=== PATIENT | female | born 1980 | race Caucasian/White ===

== ENCOUNTER 2018-09-15 01:27 | Emergency (ER) | payer BC, OTHER ==
--- NOTE | 2018-09-15 01:43 | ER Document Report ---
ED General - General Chief Complaint: Shortness Of Breath Stated Complaint: TROUBLE BREATHING Time Seen by Provider: 09/15/18 01:43 Notes: Patient is a 38-year-old female that presents to the emergency department for chief complaint of shortness of breath. Patient states she is been having cold symptoms and cough since August 25, she is also been complaining of some eye swelling over the period of time. She states that the change denies she became significantly more short of breath, and had pain along the right side, worse with deep breathing. She states she feels tightness in her chest as well. She denies history of asthma or COPD. She is a non-smoker. She currently rates her pain as a 4 out of 10 describes as an aching sensation on the right side. She also has pain underneath the right eyelid, and she is noticed some swelling or 2, denies any eye redness, or discharge. She denies any current headaches, lightheadedness, dizziness. Denies any current nausea, vomiting or abdominal pain. She also denies having any leg swelling, redness or pain. She does report taking 2 puffs of albuterol inhaler prior to ED arrival. Past Medical History: Hypothyroidism Past Surgical History: Thyroidectomy Social History: Denies tobacco, alcohol or drug use. Family History: Reviewed and noncontributory for presenting illness Allergies: Reviewed, see documented allergy list. REVIEW OF SYSTEMS: Other than noted above, the 12 point review of systems was reviewed with the patient and were negative, all pertinent findings are included in the HPI. PHYSICAL EXAMINATION: Vital signs reviewed, nursing noted reviewed. GENERAL: Patient appears rather anxious, but nontoxic appearing HEAD: Atraumatic, normocephalic. EYES: Eyes appear normal, extraocular movements intact, sclera anicteric. There is mild right conjunctival injection, compared to the left. PERRLA, there is very mild right periorbital edema mainly limited to the lower eyelid. ENT: nares patent, oropharynx clear without exudates. Moist mucous membranes. NECK: Normal range of motion, supple without lymphadenopathy LUNGS: Tachypneic, lung sounds clear at this time. Equal bilaterally. HEART: Heart rate tachycardic, regular rhythm. ABDOMEN: Soft, nontender, normoactive bowel sounds. No rebound, guarding, or rigidity. No masses appreciated. EXTREMITIES: Nontender, good range of motion, no pitting or edema. NEUROLOGICAL: No focal neurological deficits. Moves all extremities spontaneously Motor and sensory grossly intact on exam. PSYCH: Anxious appearing, but answering questions appropriately. SKIN: Warm, Dry, normal turgor, no rashes or lesions noted on exposed skin TRAVEL OUTSIDE OF THE [place] IN LAST 30 DAYS: No - Related Data Allergies/Adverse Reactions: No Known Allergies Allergy (Verified 09/15/18 02:08) Past Medical History - Social History Smoking Status: Never Smoker Family History: Reviewed & Not Pertinent Physical Exam - Vital signs Vitals: Temp Pulse Resp BP Pulse Ox 98.1 F 100 30 H 126/100 H 100 09/15/18 01:31 09/15/18 01:31 09/15/18 01:31 09/15/18 01:09/15/18 01:31 Course - Re-evaluation Re-evalutation: Patient seen and examined vital signs reviewed. Laboratory data and imaging were ordered as appropriate for the patient's presenting symptoms and complaint, with consideration of any critical or life threatening conditions that may be associated with their obtained history and exam as noted above. Patient was treated with DuoNeb breathing treatment Results were reviewed when available and demonstrated essentially unremarkable blood work with the exception of a mildly elevated d-dimer, which was ordered because the patient's on oral contraceptive pills, and was tachycardic, and was having some chest discomfort unilaterally on the right, the d-dimer was slightly elevated, and therefore CT angiogram of the chest was ordered, this was negative for any acute pulmonary pathology, specifically negative for pulmonary embolism. The patient was re-evaluated and was improved, I discussed with the patient all results, including her thyroid function being normal, and that this is likely related to her URI symptoms, and possibly some mild bronchospasm, that responded to albuterol she gave herself at home, will discharge her with an albuterol inhaler, will also treated for mild conjunctivitis of her right eye, with Cipro drops, given first drop in the ED, dispense the dropper, and will treat for 5 days, advised follow-up with her primary care. Evaluation was most consistent with URI, conjunctivitis Results were discussed with the patient at this point, after careful co nsideration I feel that that patient can be discharged from the emergency department, the patient was educated treatments and reasons to return to the emergency department based on their presumed diagnosis as noted above, they were advised to followup with a primary care physician in 2-3 days. Patient was agreeable to plan of care. *Note is created using voice recognition software and may contain spelling, syntax or grammatical errors. Laboratory 09/15/18 09/15/18 09/15/18 01:40 01:40 01:40 WBC 8.7 RBC 4.49 Hgb 14.0 Hct 40.5 MCV 90 MCH 31.1 MCHC 34.5 RDW 13.1 Plt Count 415 Seg Neutrophils % 50.9 Lymphocytes % 36.3 Monocytes % 6.8 Eosinophils % 4.8 Basophils % 1.2 Absolute Neutrophils 4.4 Absolute Lymphocytes 3.2 Absolute Monocytes 0.6 Absolute Eosinophils 0.4 Absolute Basophils 0.1 PT INR D-Dimer 0.58 H VBG pH VBG pCO2 VBG HCO3 VBG Base Excess Sodium 145.8 H Potassium 4.5 Chloride 110 H Carbon Dioxide 25 Anion Gap 11 BUN 18 Creatinine 0.97 Est GFR ( Amer) > 60 Est GFR (Non-Af Amer) > 60 Glucose 105 POC Glucose Lactic Acid Calcium 9.4 Total Bilirubin 0.2 Direct Bilirubin 0.1 Neonat Total Bilirubin Not Reportable Neonat Direct Bilirubin Not Reportable Neonat Indirect Bili Not Reportable AST 28 ALT 28 Alkaline Phosphatase 109 Troponin I Total Protein 7.3 Albumin 4.7 TSH Free T4 Serum HCG, Qual Urine Color Urine Appearance Urine pH Ur Specific Bennett Urine Protein Urine Glucose (UA) Urine Ketones Urine Blood Urine Nitrite Urine Bilirubin Urine Urobilinogen Ur Leukocyte Esterase Urine WBC (Auto) Urine RBC (Auto) Urine Bacteria (Auto) Squamous Epi Cells Auto Urine Mucus (Auto) Urine Ascorbic Acid 09/15/18 09/15/18 09/15/18 01:40 01:40 01:40 WBC RBC Hgb Hct MCV MCH MCHC RDW Plt Count Seg Neutrophils % Lymphocytes % Monocytes % Eosinophils % Basophils % Absolute Neutrophils Absolute Lymphocytes Absolute Monocytes Absolute Eosinophils Absolute Basophils PT INR D-Dimer VBG pH VBG pCO2 VBG HCO3 VBG Base Excess Sodium Potassium Chloride Carbon Dioxide Anion Gap BUN Creatinine Est GFR ( Amer) Est GFR (Non-Af Amer) Glucose POC Glucose Lactic Acid Calcium Total Bilirubin Direct Bilirubin Neonat Total Bilirubin Neonat Direct Bilirubin Neonat Indirect Bili AST ALT Alkaline Phosphatase Troponin I < 0.012 Total Protein Albumin TSH 2.50 Free T4 1.44 Serum HCG, Qual NEGATIVE Urine Color Urine Appearance Urine pH Ur Specific Bennett Urine Protein Urine Glucose (UA) Urine Ketones Urine Blood Urine Nitrite Urine Bilirubin Urine Urobilinogen Ur Leukocyte Esterase Urine WBC (Auto) Urine RBC (Auto) Urine Bacteria (Auto) Squamous Epi Cells Auto Urine Mucus (Auto) Urine Ascorbic Acid 09/15/18 09/15/18 09/15/18 01:40 01:40 01:40 WBC RBC Hgb Hct MCV MCH MCHC RDW Plt Count Seg Neutrophils % Lymphocytes % Monocytes % Eosinophils % Basophils % Absolute Neutrophils Absolute Lymphocytes Absolute Monocytes Absolute Eosinophils Absolute Basophils PT 12.0 INR 0.84 D-Dimer VBG pH 7.34 VBG pCO2 46.6 VBG HCO3 24.4 VBG Base Excess -1.7 Sodium Potassium Chloride Carbon Dioxide Anion Gap BUN Creatinine Est GFR ( Amer) Est GFR (Non-Af Amer) Glucose POC Glucose Lactic Acid 1.4 Calcium Total Bilirubin Direct Bilirubin Neonat Total Bilirubin Neonat Direct Bilirubin Neonat Indirect Bili AST ALT Alkaline Phosphatase Troponin I Total Protein Albumin TSH Free T4 Serum HCG, Qual Urine Color Urine Appearance Urine pH Ur Specific Bennett Urine Protein Urine Glucose (UA) Urine Ketones Urine Blood Urine Nitrite Urine Bilirubin Urine Urobilinogen Ur Leukocyte Esterase Urine WBC (Auto) Urine RBC (Auto) Urine Bacteria (Auto) Squamous Epi Cells Auto Urine Mucus (Auto) Urine Ascorbic Acid 09/15/18 09/15/18 01:56 02:50 WBC RBC Hgb Hct MCV MCH MCHC RDW Plt Count Seg Neutrophils % Lymphocytes % Monocytes % Eosinophils % Basophils % Absolute Neutrophils Absolute Lymphocytes Absolute Monocytes Absolute Eosinophils Absolute Basophils PT INR D-Dimer VBG pH VBG pCO2 VBG HCO3 VBG Base Excess Sodium Potassium Chloride Carbon Dioxide Anion Gap BUN Creatinine Est GFR ( Amer) Est GFR (Non-Af Amer) Glucose POC Glucose 110 Lactic Acid Calcium Total Bilirubin Direct Bilirubin Neonat Total Bilirubin Neonat Direct Bilirubin Neonat Indirect Bili AST ALT Alkaline Phosphatase Troponin I Total Protein Albumin TSH Free T4 Serum HCG, Qual Urine Color STRAW Urine Appearance CLEAR Urine pH 5.0 Ur Specific Bennett 1.015 Urine Protein NEGATIVE Urine Glucose (UA) NEGATIVE Urine Ketones NEGATIVE Urine Blood SMALL H Urine Nitrite NEGATIVE Urine Bilirubin NEGATIVE Urine Urobilinogen NEGATIVE Ur Leukocyte Esterase NEGATIVE Urine WBC (Auto) 1 Urine RBC (Auto) 1 Urine Bacteria (Auto) TRACE Squamous Epi Cells Auto 2 Urine Mucus (Auto) RARE Urine Ascorbic Acid NEGATIVE Chest X-Ray 09/15/18 01:44 IMPRESSION: Negative chest copyright 2010 [employer]- All Rights Reserved Chest/Abdomen CTA 09/15/18 02:11 IMPRESSION: Unremarkable CTA chest TECHNICAL DOCUMENTATION: Quality ID # 436: Final reports with documentation of one or more dose reduction techniques (e.g., Automated exposure control, adjustment of the mA and/or kV according to patient size, use of iterative reconstruction technique) copyright 2010 [employer]- All Rights Reserved - Vital Signs Vital signs: Temp Pulse Resp BP Pulse Ox 98.1 F 100 16 138/79 H 99 09/15/18 01:31 09/15/18 01:31 09/15/18 02:01 09/15/18 02:01 09/15/18 02:01 - Laboratory Result Diagrams: 09/15/18 01:40 09/15/18 01:40 Laboratory results interpreted by me: 09/15/18 09/15/18 09/15/18 01:40 01:40 02:50 D-Dimer 0.58 H Sodium 145.8 H Chloride 110 H Urine Blood SMALL H Discharge - Discharge Clinical Impression: Bronchospasm URI (upper respiratory infection) Qualifiers: URI type: unspecified URI Qualified Code(s): J06.9 - Acute upper respiratory infection, unspecified Conjunctivitis Qualifiers: Conjunctivitis type: unspecified Laterality: right Qualified Code(s): H10.9 - Unspecified conjunctivitis Condition: Stable Disposition: HOME, SELF-CARE Instructions: Conjunctivitis ([facility]), Upper Respiratory Illness ([facility]) Additional Instructions: Please return to the emergency department if you have any worsening, or concern of your symptoms. Please return to the emergency department if you develop chest pain, difficulty breathing, severe abdominal pain, or ongoing vomiting. Please follow-up with your primary care physician in 2-3 days and any other recommended physicians. If prescribed, take all medications as directed. If you have any questions or concerns do not hesitate to return the emergency department for evaluation. Please use the albuterol inhaler every 4 hours as needed for shortness of breath or wheezing, use the Cipro eyedrops 1 drop in your right eye 4 times daily for the next 5 days, then you can discontinue using the eyedrop. I would encourage you to use the Flonase, for the next 2 weeks, as directed, and to use [id number] Sudafed to help with your congestion symptoms. Prescriptions: Fluticasone Propionate [Flonase Nasal [place] 50 Mcg/[place] 16 gm] 1 spray NASL Q12 #1 inhaler Referrals: LANCE OSHEA MD [NO LOCAL MD] - Follow up in 3-5 days
[2018-09-15] MEDS ORDERED: IPRATROPIUM/ALBUTEROL 0.5-2.5 MG/3 ML AMPUL NEB ONE (01:44)
[2018-09-15] MEDS ORDERED: NORMAL SALINE 1000 ML 1,000 ML IV ONE (01:44)
[2018-09-15 01:58] LABS: VENOUS BLOOD BASE EXCESS -1.7 mmol/L; VENOUS BLOOD HCO3 24.4 mmol/L (20-32); VENOUS BLOOD PCO2 46.6 mmHg (35-63); VENOUS BLOOD PH 7.34 (7.30-7.42)
[2018-09-15 02:07] LABS: ABSOLUTE BASOPHILS # (AUTO) 0.1 10^3/uL (0.0-0.2); ABSOLUTE EOSINOPHILS # (AUTO) 0.4 10^3/uL (0.0-0.6); ABSOLUTE LYMPHOCYTES (AUTO) 3.2 10^3/uL (0.5-4.7); ABSOLUTE MONOCYTES (AUTO) 0.6 10^3/uL (0.1-1.4); ABSOLUTE NEUT (AUTO) 4.4 10^3/uL (1.7-8.2); BASOPHILS % (AUTO) 1.2 % (0-2); EOSINOPHILS % (AUTO) 4.8 % (0-6); HEMATOCRIT 40.5 % (36.0-47.0); LYMPHOCYTES % (AUTO) 36.3 % (13-45); MEAN CORPUSCULAR HEMOGLOBIN 31.1 pg (27.0-33.4); MEAN CORPUSCULAR HGB CONC 34.5 g/dL (32.0-36.0); MEAN CORPUSCULAR VOLUME 90 fl (80-97); MONOCYTES % (AUTO) 6.8 % (3-13); PLATELET COUNT 415 10^3/uL (150-450); RED BLOOD COUNT 4.49 10^6/uL (3.72-5.28); RED CELL DISTRIBUTION WIDTH 13.1 % (11.5-14.0); SEGMENTED NEUTROPHILS % (AUTO) 50.9 % (42-78); TOTAL CELLS COUNTED % (AUTO) 100 %; WHITE BLOOD COUNT 8.7 10^3/uL (4.0-10.5)
[2018-09-15 02:10] LABS: INTERNATIONAL RATION (INR) 0.84
[2018-09-15 02:12] LABS: ALANINE AMINOTRANSFERASE 28 U/L (9-52); ALBUMIN 4.7 g/dL (3.5-5.0); ALKALINE PHOSPHATASE 109 U/L (38-126); ANION GAP 11 (5-19); ASPARTATE AMINO TRANSFERASE 28 U/L (14-36); BILIRUBIN,DIRECT 0.1 mg/dL (0.0-0.4); BILIRUBIN,TOTAL 0.2 mg/dL (0.2-1.3); BLOOD UREA NITROGEN 18 mg/dL (7-20); CALCIUM 9.4 mg/dL (8.4-10.2); CARBON DIOXIDE 25 mmol/L (22-30); CHLORIDE 110 mmol/L (98-107); GLUCOSE 105 mg/dL (75-110); POTASSIUM 4.5 mmol/L (3.6-5.0); SODIUM 145.8 mmol/L (137-145); TOTAL PROTEIN 7.3 g/dL (6.3-8.2)
--- NOTE | 2018-09-15 02:52 | RADIOLOGY REPORT (SQ) ---
EXAM DESCRIPTION: XR CHEST 1 VIEW COMPLETED DATE/TME: 09/15/2018 01:44 CLINICAL HISTORY: 38 years, Female, shortness of breath COMPARISON: None. NUMBER OF VIEWS: 1 TECHNIQUE: Portable chest LIMITATIONS: None. FINDINGS: Heart size is normal. Lungs are clear. No pneumothorax IMPRESSION: Negative chest copyright 2010 [employer]- All Rights Reserved
--- NOTE | 2018-09-15 02:59 | RADIOLOGY REPORT (SQ) ---
EXAM DESCRIPTION: CT CHEST ANGIOGRAPHY WITHOUT THEN WITH IV CONTRAST COMPLETED DATE/TME: 09/15/2018 02:11 CLINICAL HISTORY: 38 years, Female, shortness of breath, chest pain, elevated d dimer 0.58 COMPARISON: None. TECHNIQUE: [id number] Images stored on PACS. All CT scanners at this facility use dose modulation, iterative reconstruction, and/or weight based dosing when appropriate to reduce radiation dose to as low as reasonably achievable (ALARA). Axial CTA images were obtained with coronal and sagittal MIPS reconstructions. [facility]: Dose Right [facility]: CareDose [facility]: Dose Right [facility]: Teradose 4D [facility]: [employer] LIMITATIONS: None. FINDINGS: The mediastinal vasculature enhances normally. No intraluminal filling defect to suggest pulmonary embolus. Negative for thoracic aortic aneurysm or dissection. No mediastinal or hilar adenopathy. The heart and pericardium are unremarkable. Limited evaluation of the upper abdomen is unremarkable. Osseous structures are grossly intact. No pneumothorax. Visualized airways are patent. Lungs are clear IMPRESSION: Unremarkable CTA chest TECHNICAL DOCUMENTATION: Quality ID # 436: Final reports with documentation of one or more dose reduction techniques (e.g., Automated exposure control, adjustment of the mA and/or kV according to patient size, use of iterative reconstruction technique) copyright 2010 [employer]- All Rights Reserved
[2018-09-15 03:07] LABS: FREE T4 (FREE THYROXINE) 1.44 ng/dL (0.78-2.19)
[2018-09-15 03:15] LABS: APPEARANCE,URINE CLEAR; BILIRUBIN,URINE NEGATIVE (NEGATIVE); COLOR,URINE STRAW; GLUCOSE, URINE NEGATIVE (NEGATIVE); KETONES,URINE NEGATIVE (NEGATIVE); LEUKOCYTE ESTERASE,URINE NEGATIVE (NEGATIVE); NITRITE,URINE NEGATIVE (NEGATIVE); PROTEIN,URINE NEGATIVE (NEGATIVE); URINE SPECIFIC GRAVITY 1.015; UROBILINOGEN,URINE NEGATIVE mg/dL (<2.0)
[2018-09-15 03:21] LABS: THYROID STIMULATING HORMONE 2.5 uIU/mL (0.47-4.68)
[2018-09-15] MEDS ORDERED: ALBUTEROL SULFATE HFA (90 MCG/PUFF) 8 GM MDI (1 MDI/ER DISP) IH ONE (03:22)
[2018-09-15] MEDS ORDERED: CIPROFLOXACIN HCL 0.3% OPH SOLN 2.5 ML OD ONE (03:22)
[2018-09-15] MEDS ORDERED: ALBUTEROL SULFATE HFA (90 MCG/PUFF) 200 PUFF/8.5 GM MDI IH ONE (03:43)
[2018-09-15 03:57] VITALS: BP 120/72
--- NOTE | 2018-09-15 07:55 | EKG REPORT ---
SEVERITY:- ABNORMAL ECG - SINUS RHYTHM NONSPECIFIC T ABNORMALITIES, INFERIOR LEADS : Confirmed by: Evan Figueredo MD 15-Sep-2018 07:54:27
== END 2018-09-15 03:59 | disposition home or self-care (01) ==
LOC: ER 01:27
DX: J98.01 Acute bronchospasm (principal); J06.9 Acute upper respiratory infection, unspecified; H10.9 Unspecified conjunctivitis; R06.02 Shortness of breath; R05 Cough; H57.89 Other specified disorders of eye and adnexa; R07.89 Other chest pain; R00.0 Tachycardia, unspecified; R79.1 Abnormal coagulation profile; E89.0 Postprocedural hypothyroidism; Z79.3 Long term (current) use of hormonal contraceptives
CPT/HCPCS: 93005; 94640; 99285; 96360; 36415; 87086; 84439; 82962; 84443; 84703; 85025; 85610; 80053; 81001; 84484; 85379; 82803; 83605; 71045; 71275; 93010; J3490 ×2; J7030; J7620